=== PATIENT | male | born 1950 | race Asian ===

== ENCOUNTER 2017-01-30 13:11 | Day surgery (SDC) | payer MEDICARE ==
[~2017-01-30] VITALS: Ht 162.6 cm; Wt 75.3 kg
[~2017-01-30 13:11] MED LIST: ASPI-481 PO; FLUT16SP24 NASAL; LISI10TA2 PO; LORA10TA3 PO; OMEP20CA16 PO; TRAZ50TA18 PO; [UNRECOGNIZED DRUG - CODE] PO
[2017-01-30 14:58] VITALS: Ht 162.6 cm; Wt 75.3 kg
[2017-01-30] MEDS ORDERED: MIDAZOLAM 1 MG/ML 2 ML INJ ONE (15:08)
[2017-01-30] MEDS ORDERED: FENTAnyl 50 MCG/ML VIAL ONE (15:08)
[2017-01-30] MEDS ORDERED: ETOMIDATE 20 MG INJ ONE (15:09)
[2017-01-30 15:12] VITALS: BP 147/67; PULSE 58; RESP 12
[2017-01-30] MEDS ORDERED: DICL75TA2 PO (15:14)
[2017-01-30] MEDS ORDERED: [UNRECOGNIZED DRUG - REMARK] PO (15:14)
[2017-01-30] MEDS ORDERED: ATOR40TA68 PO (15:14)
[2017-01-30] MEDS ORDERED: METO25TA4 PO (15:14)
[2017-01-30] MEDS ORDERED: ASPI-535 PO (15:14)
[2017-01-30] MEDS ORDERED: GABA300C16 PO (15:14)
--- NOTE | 2017-01-30 15:42 | OPPN ---
Date/Time of Note Date/Time of Note DATE: 01/30/17 TIME: 15:40 Operative Report Preoperative Diagnosis Screening Postoperative Diagnosis Small right colon polyp was removed Internal hemorrhoids Operation/Procedure Performed Colonoscopy and biopsy Provider: ZACHARY SHOEMAKER MD Anesthesia Type: MAC Estimated blood loss: none Transfusion Required: no Specimens Right colon polyp Grafts/Implants: none Complications: no ZACHARY SHOEMAKER MD Jan 30, 2017 15:42
[2017-01-30 16:40] VITALS: BP 124/58; PULSE 60; RESP 13
--- NOTE | 2017-01-30 17:53 | GILP ---
DATE OF PROCEDURE: 01/30/2017 PROCEDURE PERFORMED: Colonoscopy and biopsy. SURGEON: Vineet Strong MD. PREOPERATIVE DIAGNOSES: 1. Screening colonoscopy. 2. History of colon polyps. POSTOPERATIVE DIAGNOSES: 1. Colonoscopy all the way to the cecum. 2. Small right colon polyp was removed using the biopsy forceps. 3. Internal and external hemorrhoids. INDICATION: Mr. Hunt is a 66-year-old male patient who had a history of colon polyps. His last colonoscopy was more than 10 years ago. The patient needed a screening colonoscopy. The procedure and possible complications were well explained to the patient. He understood and consented to the procedure. DESCRIPTION OF PROCEDURE: Under influence of anesthesia, the colonoscope was carefully introduced in the rectum. Under direct vision, it was advanced all the way to the cecum. FINDINGS: The patient had a small right colon polyp, and it was removed using the biopsy forceps. He had internal and external hemorrhoids. He tolerated the procedure very well, and there was no complication from the procedure. At the end of procedure, he was awake with stable vital signs, and he was discharged home in the care of his family. IMPRESSION: 1. Colonoscopy all the way to the cecum. 2. Small right colon polyp was removed using the biopsy forceps. 3. Internal and external hemorrhoids. PLAN: Next screening colonoscopy in 10 years. Dictated By: MD EVELIA Jiang/[email or web address]/roberto /Document#: [id number]
== END 2017-01-30 15:48 | disposition home or self-care (01) ==
LOC: GIL 13:11
PROVIDERS: ATTEND Internal Medicine Gastroenterology
DX: Z12.11 Encounter for screening for malignant neoplasm of colon (principal); D12.2 Benign neoplasm of ascending colon; K64.4 Residual hemorrhoidal skin tags; K64.8 Other hemorrhoids; E78.5 Hyperlipidemia, unspecified; I25.10 Atherosclerotic heart disease of native coronary artery without angina pectoris; Z95.1 Presence of aortocoronary bypass graft; I10 Essential (primary) hypertension
CPT/HCPCS: 45380; 88305; J2250; J3010